=== PATIENT | male | born 1945 | race Caucasian/White ===

== ENCOUNTER → 2017-01-08 | Outpatient (CLI) | payer OTHER ==
--- NOTE | 2017-01-08 19:18 | DX ---
Lumbar Spine, 2 Views at 1437 hours History: Low back pain. 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 NO I/A. Findings: Five lumbar vertebral body segments. Bilateral transpedicular screws and fusion rods at the L3, L4, L5 and S1 levels. Interbody disk hardware at L3-L4, L4-L5 and L5-S1. Hardware appears intact . Moderate degenerative disk disease at L2-L3 with moderate disk space narrowing, endplate sclerotic ch anges, osteophytes, and degenerative grade 1 retrolisthesis 5 mm. Impression: 1. L3-L4 through L5-S1 diskectomies and posterior fusion hardware appearing intact with satisfactory alignment. 2. L2-L3 moderate degenerative disk disease and degenerative retrolisthesis. 3. No lumbar compression fractures.
== END ==
LOC: FIMAGING 14:24
PROVIDERS: ATTEND Physician Assistant
DX: M51.36 Other intervertebral disc degeneration, lumbar region (principal); M99.73 Connective tissue and disc stenosis of intervertebral foramina of lumbar region; Z98.1 Arthrodesis status

== ENCOUNTER → 2017-08-19 | Outpatient (CLI) | payer OTHER | LOC: GIMAGING 15:09 | PROVIDERS: ATTEND Family Medicine | DX: M50.321 Other cervical disc degeneration at C4-C5 level (principal); M50.322 Other cervical disc degeneration at C5-C6 level; M99.71 Connective tissue and disc stenosis of intervertebral foramina of cervical region | CPT/HCPCS: 72050-PO; G0103 ==

== ENCOUNTER → 2018-01-27 | Outpatient (CLI) | payer OTHER | LOC: BMCIMAGING 14:52 | PROVIDERS: ATTEND Family Medicine | DX: Z13.820 Encounter for screening for osteoporosis (principal); M85.89 Other specified disorders of bone density and structure, multiple sites ==

== ENCOUNTER 2018-11-28 10:01 | Emergency (ER) | payer OTHER ==
--- NOTE | 2018-11-28 10:47 | EDPHY ---
HPI/HX/ROS/PE/MDM Narrative: CHIEF COMPLAINT: Left neck swelling, dyspnea HPI: The patient is a 73 y/o male arriving with his complaining of acute onset mild shortness of breath and notable left-sided neck swelling noticed upon waking this morning. The swelling has diminished somewhat since waking per . He describes a mild dull ache in the area that changes to a pinching sensation when he lifts his left arm or twists his neck. His voice seems hoarse to his . He cannot identify obvious precipitating causes. He sat at his computer yesterday and felt normal. No recent trauma. He is typically very active and despite symptoms went to spin class this morning. He was able to work out for about 30 minutes before he had to stop due to shortness of breath. He denies fever, cough, rhinorrhea, chest pain, abdominal pain, nausea, vomiting , diarrhea. He has no known history of cancers, cardiac disease, or respiratory disease. REVIEW OF SYSTEMS: A comprehensive 10 system review of systems is otherwise negative aside from elements mentioned in the history of present illness. 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 PHYSICAL EXAM: General:Patient is alert, in no acute distress. ENT:Eyes are normal to inspection. ENT inspection normal. Neck: 10cm area of an easily mobile fluid collection along the left lateral neck and located superior to clavicle and posterior to SCM. Right neck is normal. Full range of motion. Respiratory:No respiratory distress. Breath sounds normal bilaterally. Cardiovascular: Regular rate and rhythm. Strong peripheral pulses. Normal cap refill. Abdomen:The abdomen is nontender to palpation. There are no peritoneal signs. Back: Normal to inspection. No tenderness to palpation. Skin: Normal color. No rash. Warm and dry. Extremities: Normal appearance. Full range of motion. Neuro: Oriented x3. Normal motor function. Normal sensory function. ED Course: This is a healthy 73 y/o male who presents with acute onset left lateral neck swelling, dyspnea, and hoarse voice. The 10cm area is mobile and seems to be fluid filled. Airway is patent and breath sounds are clear. He has no systemic infectious symptoms. Plan for IV, labs, CT soft tissue neck. Creatinine is elevated at 1.7, though this may be due to his recent spin class. Consulted with radiology and they are able to administer a lower dose of IV contrast so we can complete the study. Soft tissue neck CT: edema present in soft tissue, no hemorrhage, no mass, normal vasculature, no obvious source for fluid 1215: Reassessed patient and discussed findings. 1220: Consulted with ENT PA. They will consult with their physician and call me back. ENT recommends discharge and outpatient follow up at their office tomorrow morning. Reassessed patient and discussed recommendations. Offered admission, but he would prefer to return home and follow up with ENT tomorrow at 08:00am. Strict return precautions discussed. He is comfortable with this plan. MDM: This patient presents with acute large painless edema of left neck and supraclavicular space, currently of unknown etiology. CT shows no evidence of vascular abnormality, mass or infection. As there is no airway compromise and vitals are normal, ENT has recommended patient be discharged and follow-up with them in clinic. I offered observation stay in the hospital overnight but patient and would like to go home. The understand that the etiology of symptoms is currently unknown. - Data Points Imaging: Discussed imaging studies w/ tape sewing machine operator Radiologist, I viewed and interpreted images myself Laboratory Results: Laboratory Results 11/28/18 10:50 11/28/18 10:50 11/28/18 11/28/18 11/28/18 10:57 10:50 10:50 WBC 13.02 10^3/uL H 10^3/uL (3.80-9.50) RBC 5.51 10^6/uL 10^6/uL (4.40-6.38) Hgb 18.3 g/dL H g/dL (13.7-17.5) POC Hgb 18.0 gm/dL H gm/dL (13.7-17.5) Hct 52.0 % H % (40.0-51.0) POC Hct 53 % H % (40-51) MCV 94.4 fL fL (81.5-99.8) MCH 33.2 pg pg (27.9-34.1) MCHC 35.2 g/dL g/dL (32.4-36.7) RDW 12.8 % % (11.5-15.2) Plt Count 293 10^3/uL 10^3/uL (150-400) MPV 9.2 fL fL (8.7-11.7) Neut % (Auto) 68.3 % % (39.3-74.2) Lymph % (Auto) 20.2 % % (15.0-45.0) [place] % (Auto) 8.9 % % (4.5-13.0) Eos % (Auto) 0.4 % L % (0.6-7.6) Baso % (Auto) 0.9 % % (0.3-1.7) Nucleat RBC Rel Count 0.0 % % (0.0-0.2) Absolute Neuts (auto) 8.89 10^3/uL H 10^3/uL (1.70-6.50) Absolute Lymphs (auto) 2.63 10^3/uL 10^3/uL (1.00-3.00) Absolute Monos (auto) 1.16 10^3/uL H 10^3/uL (0.30-0.80) Absolute Eos (auto) 0.05 10^3/uL 10^3/uL (0.03-0.40) Absolute Basos (auto) 0.12 10^3/uL H 10^3/uL (0.02-0.10) Absolute Nucleated RBC 0.00 10^3/uL 10^3/uL (0-0.01) Immature Gran % 1.3 % H % (0.0-1.1) Immature Gran # 0.17 10^3/uL H 10^3/uL (0.00-0.10) POC Sodium 139 mEq/L mEq/L (135-145) Sodium 135 mEq/L mEq/L (135-145) POC Potassium 3.9 mEq/L mEq/L (3.3-5.0) Potassium 4.3 mEq/L mEq/L (3.5-5.2) POC Chloride 102 mEq/L mEq/L (97-110) Chloride 105 mEq/L mEq/L (97-110) Carbon Dioxide 23 mEq/l mEq/l (22-31) Anion Gap 7 mEq/L mEq/L (6-14) POC BUN 27 mg/dL H mg/dL (7-23) BUN 28 mg/dL H mg/dL (7-23) Creatinine 1.6 mg/dL H mg/dL (0.7-1.3) POC Creatinine 1.7 mg/dL H mg/dL (0.7-1.3) Estimated GFR 43 Glucose 110 mg/dL H mg/dL (70-100) POC Glucose 114 mg/dL H mg/dL (70-100) Calcium 8.9 mg/dL mg/dL (8.5-10.4) Medications Given: Discontinued Medications Sodium Chloride (Ns) 1,000 mls @ 0 mls/hr IV EDNOW ONE; Wide Open PRN Reason: Protocol Stop: 11/28/18 11:22 Last Admin: 11/28/18 11:47 Dose: 1,000 mls Point of Care Test Results: Chemistry 11/28/18 10:57 POC Sodium 139 mEq/L mEq/L (135-145) POC Potassium 3.9 mEq/L mEq/L (3.3-5.0) POC Chloride 102 mEq/L mEq/L (97-110) POC BUN 27 mg/dL H mg/dL (7-23) POC Creatinine 1.7 mg/dL H mg/dL (0.7-1.3) POC Glucose 114 mg/dL H mg/dL (70-100) ISTAT H&H 11/28/18 10:57 POC Hgb 18.0 gm/dL H gm/dL (13.7-17.5) POC Hct 53 % H % (40-51) General Time Seen by Provider: 11/28/18 10:35 Initial Vital Signs: Initial Vital Signs Temperature (C) 36.7 C 11/28/18 10:05 Heart Rate 84 11/28/18 10:05 Respiratory Rate 16 11/28/18 10:05 Blood Pressure 122/80 H 11/28/18 10:05 O2 Sat (%) 97 11/28/18 10:05 O2 Delivery Mode Room Air Allergies/Adverse Reactions: No Known Allergies Allergy (Verified 11/28/18 10:07) Home Medications: Medication Instructions Recorded Pantoprazole Sodium [Protonix] 40 mg PO 11/28/18 Departure - Departure Disposition: Home, Routine, Self-Care Clinical Impression: Edema Condition: Good Instructions: Edema (ED) Additional Instructions: Follow up with ENT tomorrow morning at 08:00am with Dr. Mccauley at [facility]. Return to the ED for difficulty breathing, severe pain, fever, or other worsening of condition. Referrals: Cr Mccauley MD [Medical Doctor] - As per Instructions Report Scribed for: Ronaldo Blakely Report Scribed by: Meghan Salazar Date of Report: 11/28/18 Time of Report: 10:47 Physician Review and Approval Statement: Portions of this note were transcribed by an ED scribe. I personally performed the history, physical exam, and medical decision making; and confirm the accuracy of the information in the transcribed note.
[2018-11-28] MEDS ORDERED: IOPAMIDOL (ISOVUE 370) 100 ML BTL IV ONE (11:01)
[2018-11-28 11:02] LABS: PLATELET COUNT 293 10^3/uL (150-400)
[2018-11-28] MEDS: NS 1,000 ML IV ONE ×2 (11:46→11:47)
[2018-11-28 13:21] VITALS: BP 119/79
== END 2018-11-28 13:21 | disposition home or self-care (01) ==
DX: R60.9 Edema, unspecified (principal); R06.02 Shortness of breath; E86.9 Volume depletion, unspecified
CPT/HCPCS: 70491; 96360; 99285; Q9967; 82435-PO; 82565-PO; 82947-PO; 84132-PO; 84295-PO; 84520-PO; 85014-PO

== ENCOUNTER 2018-11-29 08:18 | Observation (INO) | payer OTHER ==
--- NOTE | 2018-11-29 08:25 | EDPHY ---
HPI/HX/ROS/PE/MDM Narrative: CHIEF COMPLAINT: Swelling in neck and abdomen, shortness of breath. HPI: This patient is a 73 year old male with history of diverticulosis and hiatal hernia. He returns to the emergency department today after evaluation yesterday for left-sided neck swelling. This morning, the neck swelling has decreased but is now bilateral, and the patient has swelling in his abdomen and scrotal area as well. He endorses a sudden 10 pound weight gain since yesterday. He states he had some mild abdominal discomfort yesterday but attributed this to his history of diverticulosis. The patient additionally feels short of breath, as if he must breathe shallowly due to a sensation of compression or fullness. His lower abdomen feels full as well and is mildly painful to palpation. The patient has never had similar symptoms in the past. He denies fever, nausea, vomiting, or diarrhea. He was able to eat well last night. He is generally very active and healthy. He denies chest pain, headache, syncope, or other worsening of condition. REVIEW OF SYSTEMS: A comprehensive 10 system review of systems is otherwise negative aside from elements mentioned in the history of present illness and medical decision making. PMH: Diverticulitis. History of hiatal hernia. History of back surgeries. 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 PHYSICAL EXAM: General:Patient is alert, in no acute distress. ENT:Eyes are normal to inspection. ENT inspection normal. Neck: Mild diffuse edema bilaterally, significantly reduced on the left since yesterday. Full range of motion. Respiratory:No respiratory distress. Breath sounds normal bilaterally. Cardiovascular: Regular rate and rhythm. Strong peripheral pulses. Normal cap refill. Abdomen:The lower abdomen is mildly tender to palpation. There are no peritoneal signs. There are normal bowel sounds. Genitourinary: Inguinal region, penis, and scrotum are diffusely swollen. Back: Normal to inspection. No tenderness to palpation. Skin: Normal color. No rash. Warm and dry. Extremities: Normal appearance. Full range of motion. Neuro: Oriented x3. Normal motor function. Normal sensory function. ED Course: 73 y/o male returns to the emergency department for evaluation of neck swelling , shortness of breath, and now lower abdominal, inguinal, and scrotal swelling with associated 10 pound weight gain. Yesterday, the patient presented with acute onset left lateral neck swelling, dyspnea, and hoarse voice. He had a 10cm area of swelling over the left lateral neck which was mobile and seemed to be fluid filled. CT soft tissue neck yesterday showed edema present in soft tissue, no hemorrhage, no mass, normal vasculature, no obvious source for fluid. Today, the neck swelling is significantly reduced but has bilateral involvement. The patient's inguinal region, penis, and scrotum are diffusely swollen. He has no systemic infectious symptoms, vitals are within normal limits. Plan for CXR, EKG, labs including CBC, chemistries, liver, BNP, UA, coag panel, troponin, d-dimer. Plan for CT chest and abdomen/pelvis. EKG was ordered and interpreted by myself. Please see [employer] system for official reading. Chest x-ray shows bibasilar atelectasis, small bilateral pleural effusions. Reviewed laboratory studies. D-dimer elevated at 3.71 9:[address] Julian, radiologist. CT shows diffuse fluid, no observable etiology. No clots, no masses. Discussed imaging and laboratory results with patient and his . Plan for admission for further evaluation. They are comfortable with this plan. 10:12 Spoke with hospitalist service. Dr. Fermin accepts admission for anasarca. - Data Points Imaging Results: Imaging Impressions Chest X-Ray 11/29/18 08:39 Impression: Bibasilar pneumonia. Abdomen CT 11/29/18 08:57 Impression: 1. Increasing small bilateral pleural effusion and worsening body wall edema since one day prior. 2. No explanation for anasarca. No lymphadenopathy or mass. 3. Mild bibasilar compressive atelectasis. CT Abdomen and Pelvis Contrast Technique: The abdomen and pelvis were scanned with 5 mm thick helically acquired slices following uneventful intravenous administration of 99 mL of Isovue-370. Dose reduction techniques were utilized. Findings: Small free fluid is present in the paracolic gutters and low pelvis. No abscess, intraabdominal mass, or lymphadenopathy. Diffuse edema involves the subcutaneous and mesenteric fat. The borderline enlarged liver, measuring 19.5 cm in the midaxillary line homogeneously enhances. No liver mass or evidence of cirrhosis. The hepatic and portal venous systems are patent. The spleen is normal size. No focal lesion. The pancreas, adrenal glands, and kidneys are normal. No renal mass or renal vein thrombosis. Gallbladder is contracted and contains layering dependent material (sludge versus stones). No biliary dilation. Bowel pattern is within normal limits with the exception of extensive diverticulosis throughout the descending and sigmoid colon. The abdominal aorta is normal caliber with mild calcified plaque. No lytic or blastic bone lesions. Posterior fusion hardware extends from L3 to S1. Grade 1 retrolisthesis of L2 on L3 results in mild central canal narrowing at L2-L3. Impression: 1. Small ascites and diffuse mesenteric and subcutaneous edema consistent with anasarca. 2. No clear etiology for anasarca. No lymphadenopathy, mass, or venous occlusion. Patent renal veins. 3. Extensive diverticulosis of the descending and sigmoid colon. 4. Cholelithiasis versus gallbladder sludge. Findings discussed with Emergency Department physician, Ronaldo Blakely MD on 11/29/2018 at 10:[address] 11/29/18 08:57 Impression: 1. Increasing small bilateral pleural effusion and worsening body wall edema since one day prior. 2. No explanation for anasarca. No lymphadenopathy or mass. 3. Mild bibasilar compressive atelectasis. CT Abdomen and Pelvis Contrast Technique: The abdomen and pelvis were scanned with 5 mm thick helically acquired slices following uneventful intravenous administration of 99 mL of Isovue-370. Dose reduction techniques were utilized. Findings: Small free fluid is present in the paracolic gutters and low pelvis. No abscess, intraabdominal mass, or lymphadenopathy. Diffuse edema involves the subcutaneous and mesenteric fat. The borderline enlarged liver, measuring 19.5 cm in the midaxillary line homogeneously enhances. No liver mass or evidence of cirrhosis. The hepatic and portal venous systems are patent. The spleen is normal size. No focal lesion. The pancreas, adrenal glands, and kidneys are normal. No renal mass or renal vein thrombosis. Gallbladder is contracted and contains layering dependent material (sludge versus stones). No biliary dilation. Bowel pattern is within normal limits with the exception of extensive diverticulosis throughout the descending and sigmoid colon. The abdominal aorta is normal caliber with mild calcified plaque. No lytic or blastic bone lesions. Posterior fusion hardware extends from L3 to S1. Grade 1 retrolisthesis of L2 on L3 results in mild central canal narrowing at L2-L3. Impression: 1. Small ascites and diffuse mesenteric and subcutaneous edema consistent with anasarca. 2. No clear etiology for anasarca. No lymphadenopathy, mass, or venous occlusion. Patent renal veins. 3. Extensive diverticulosis of the descending and sigmoid colon. 4. Cholelithiasis versus gallbladder sludge. Findings discussed with Emergency Department physician, Ronaldo Blakely MD on 11/29/2018 at 10:02 a.m. Imaging: Discussed imaging studies w/ talent associate Radiologist, I viewed and interpreted images myself Laboratory Results: Laboratory Results 11/29/18 08:30 11/29/18 08:30 11/29/18 11/29/18 11/29/18 08:40 08:35 08:30 WBC RBC Hgb Hct MCV MCH MCHC RDW Plt Count MPV Neut % (Auto) Lymph % (Auto) [place] % (Auto) Eos % (Auto) Baso % (Auto) Nucleat RBC Rel Count Absolute Neuts (auto) Absolute Lymphs (auto) Absolute Monos (auto) Absolute Eos (auto) Absolute Basos (auto) Absolute Nucleated RBC Immature Gran % Immature Gran # PT INR APTT D-Dimer Sodium 134 mEq/L L mEq/L (135-145) Potassium 4.0 mEq/L mEq/L (3.5-5.2) Chloride 103 mEq/L mEq/L (97-110) Carbon Dioxide 25 mEq/l mEq/l (22-31) Anion Gap 6 mEq/L mEq/L (6-14) BUN 22 mg/dL mg/dL (7-23) Creatinine 1.2 mg/dL mg/dL (0.7-1.3) Estimated GFR 60 Glucose 91 mg/dL mg/dL (70-100) Calcium 8.5 mg/dL mg/dL (8.5-10.4) Total Bilirubin 1.0 mg/dL mg/dL (0.1-1.4) Conjugated Bilirubin 0.2 mg/dL mg/dL (0.0-0.5) Unconjugated Bilirubin 0.8 mg/dL mg/dL (0.0-1.1) AST 35 IU/L IU/L (17-59) ALT 31 IU/L IU/L (21-72) Alkaline Phosphatase 52 IU/L IU/L (38-126) POC Troponin I 0.02 ng/mL ng/mL (0.00-0.08) NT-Pro-B Natriuret Pep 126 pg/mL H pg/mL (0-125) Total Protein 6.2 g/dL L g/dL (6.3-8.2) Albumin 3.6 g/dL g/dL (3.5-5.0) Urine Color YELLOW Urine Appearance HAZY Urine pH 6.0 (5.0-7.5) Ur Specific [place] 1.016 (1.002-1.030) Urine Protein NEGATIVE (NEGATIVE) Urine Ketones NEGATIVE (NEGATIVE) Urine Blood 1+ H (NEGATIVE) Urine Nitrate NEGATIVE (NEGATIVE) Urine Bilirubin NEGATIVE (NEGATIVE) Urine Urobilinogen NEGATIVE EU EU (0.2-1.0) Ur Leukocyte Esterase NEGATIVE (NEGATIVE) Urine RBC 1-3 /hpf /hpf (0-3) Urine WBC 0-1 /hpf /hpf (0-3) Ur Epithelial Cells TRACE /lpf /lpf (NONE-1+) Urine Mucus TRACE /lpf /lpf (NONE-1+) Urine Glucose NEGATIVE (NEGATIVE) 11/29/18 11/29/18 08:30 08:30 WBC 9.90 10^3/uL H 10^3/uL (3.80-9.50) RBC 4.79 10^6/uL 10^6/uL (4.40-6.38) Hgb 15.7 g/dL g/dL (13.7-17.5) Hct 45.0 % % (40.0-51.0) MCV 93.9 fL fL (81.5-99.8) MCH 32.8 pg pg (27.9-34.1) MCHC 34.9 g/dL g/dL (32.4-36.7) RDW 12.8 % % (11.5-15.2) Plt Count 232 10^3/uL 10^3/uL (150-400) MPV 9.1 fL fL (8.7-11.7) Neut % (Auto) 60.7 % % (39.3-74.2) Lymph % (Auto) 28.0 % % (15.0-45.0) [place] % (Auto) 8.5 % % (4.5-13.0) Eos % (Auto) 0.7 % % (0.6-7.6) Baso % (Auto) 0.7 % % (0.3-1.7) Nucleat RBC Rel Count 0.0 % % (0.0-0.2) Absolute Neuts (auto) 6.01 10^3/uL 10^3/uL (1.70-6.50) Absolute Lymphs (auto) 2.77 10^3/uL 10^3/uL (1.00-3.00) Absolute Monos (auto) 0.84 10^3/uL H 10^3/uL (0.30-0.80) Absolute Eos (auto) 0.07 10^3/uL 10^3/uL (0.03-0.40) Absolute Basos (auto) 0.07 10^3/uL 10^3/uL (0.02-0.10) Absolute Nucleated RBC 0.00 10^3/uL 10^3/uL (0-0.01) Immature Gran % 1.4 % H % (0.0-1.1) Immature Gran # 0.14 10^3/uL H 10^3/uL (0.00-0.10) PT 13.0 SEC SEC (12.0-15.0) INR 0.96 (0.83-1.16) APTT 24.6 SEC SEC (23.0-38.0) D-Dimer 3.71 ug/mLFEU H ug/mLFEU (0.00-0.50) Sodium Potassium Chloride Carbon Dioxide Anion Gap BUN Creatinine Estimated GFR Glucose Calcium Total Bilirubin Conjugated Bilirubin Unconjugated Bilirubin AST ALT Alkaline Phosphatase POC Troponin I NT-Pro-B Natriuret Pep Total Protein Albumin Urine Color Urine Appearance Urine pH Ur Specific [place] Urine Protein Urine Ketones Urine Blood Urine Nitrate Urine Bilirubin Urine Urobilinogen Ur Leukocyte Esterase Urine RBC Urine WBC Ur Epithelial Cells Urine Mucus Urine Glucose Point of Care Test Results: Chemistry 11/29/18 08:35 POC Troponin I 0.02 ng/mL ng/mL (0.00-0.08) General Initial Vital Signs: Initial Vital Signs Temperature (C) 36.9 C 11/29/18 08:23 Heart Rate 78 11/29/18 08:23 Respiratory Rate 16 11/29/18 08:23 Blood Pressure 158/88 H 11/29/18 08:23 O2 Sat (%) 94 11/29/18 08:23 O2 Delivery Mode Room Air Allergies/Adverse Reactions: No Known Allergies Allergy (Verified 11/29/18 08:22) Home Medications: Medication Instructions Recorded Famotidine [Pepcid 20 MG (*)] 40 mg PO HS PRN 11/29/18 Multivitamins [Multivitamin (*)] 1 each PO DAILY 11/29/18 Pantoprazole Sodium [Protonix 40mg 40 mg PO BIDAC 11/29/18 (*)] Sildenafil Citrate [Viagra] 100 mg PO AD 11/29/18 Departure - Departure Disposition: [facility] Inpatient Acute Clinical Impression: Anasarca Condition: Fair Report Scribed for: Ronaldo Blakely Report Scribed by: Gogo Stafford Date of Report: 11/29/18 Time of Report: 08:34 Physician Review and Approval Statement: Portions of this note were transcribed by an ED scribe. I personally performed the history, physical exam, and medical decision making; and confirm the accuracy of the information in the transcribed note.
[2018-11-29 08:44] LABS: PLATELET COUNT 232 10^3/uL (150-400)
[2018-11-29 08:52] LABS: INR 0.96 (0.83-1.16)
[2018-11-29] MEDS ORDERED: IOPAMIDOL (ISOVUE 370) 100 ML BTL IV ONE (09:01)
[2018-11-29] MEDS ORDERED: ONDANSETRON 4 MG/2 ML VIAL IVP PRN (11:41)
[2018-11-29] MEDS ORDERED: ONDANSETRON DISINTEGRATING 4 MG TAB PO PRN (11:41)
[2018-11-29] MEDS ORDERED: oxyCODONE IR 5 MG TAB PO PRN (11:41)
[2018-11-29] MEDS ORDERED: ACETAMINOPHEN 325 MG TAB PO PRN (11:41)
[2018-11-29] MEDS ORDERED: FAMOTIDINE 20 MG TAB PO PRN (11:42)
--- NOTE | 2018-11-29 13:00 | ECHO ---
[email or web address] [address] Main: [phone] Fax: [email or web address] Echocardiogram Name: CHARISMA DAWSON MR#: [id number] Study Date: 11/29/2018 Study Time: 12:16 PM Date of : 1945 Age: 73 year(s) Height: 175.3 cm (69 in.) Weight: 78.02 kg (172 lb.) BSA: 1.94 m2 Gender: Male Examination: Echo Indication: New onset Anasarca, Eval LV Fx Image Quality: Contrast: Requested by: Alex Fermin BP: 127 mmHg/73 mmHg Heart Rate: Rhythm: Indication: New onset Anasarca, Eval LV Fx Procedure Staff [employer] Driver: Devin Rdz RDCS Reading Physician: Jorge Dodd MD Requesting Provider: Conclusions: Normal global systolic LV function. EF is 76 %. Mild aortic valve regurgitation is present. Trivial tricuspid valve regurgitation. The pulmonary artery pressure is normal. Measurements: Chambers Valvular Assessment AV/MV Valvular Assessment TV/PV Normal Normal Normal Name Value Range Name Value Range Name Value Range Ao Vero (MM): 3.2 cm (2.2 cm-3.7 AV Vmax: 1.78 m/s (1 m/s-1.7 TR Vmax: 2.44 mm/s ( - ) cm) m/s) TR PGmax: 24 mmHg ( - ) IVSd (2D): 1.2 cm (0.6 cm-1.1 AV maxP mmHg ( - ) syst. PAP: 29 mmHg ( - ) cm) LVOT Vmax: 0.90 m/s (0.7 m/s-1.1 PV Vmax: 0.98 m/s (0.6 m/s-0.9 LVDd (2D): 4.7 cm (4.2 cm-5.9 m/s) m/s) cm) AR (PHT): 1016 ms ( - ) PV PGmax: 4 mmHg ( - ) LVDs (2D): 2.6 cm (2.1 cm-4 MV E Vmax: 0.74 m/s ( - ) cm) MV A Vmax: 0.84 m/s ( - ) LVPWd (2D): 1.2 cm (0.6 cm-1 MV E/A: 0.88 ( - ) cm) LVEF (2D): 76 (>=54 %) Continued Measurements: Chambers Valvular Assessment AV/MV Valvular Assessment TV/PV Name Value Name Value Name Value LADs Lon.0 cm MV E' Septal: 0.05 m/s CVP (est.): 5 mmHg LA Area: 15.9 cm2 MV E/E' Septal: 15.20 LA Volume: 45 ml MV E/E' Lateral: 12.10 LA Volume Index: 23.2 ml/m2 AR Vmax: 2.71 cm/s Patient: CHARISMA DAWSON Study Date: 11/29/2018 Page 1 of 2 12:16 PM Findings: Left Ventricle: Normal size left ventricle. No LV hypertrophy. Normal global systolic LV function. EF is 76 %. No regional wall motion abnormality. Right Ventricle: Normal size right ventricle. Normal RV function. Left Atrium: The left atrium is normal in size. Right Atrium: The right atrium is normal in size. Mitral Valve: The mitral valve is normal in appearance and function. There is no mitral valve regurgitation. Aortic Valve: The aortic valve is tri-leaflet. Mild aortic valve regurgitation is present. Tricuspid Valve: The tricuspid valve appears normal. Trivial tricuspid valve regurgitation. The pulmonary artery pressure is normal. Pulmonic Valve: The pulmonic valve is normal in appearance and function. Aorta: The aorta is normal. Pericardium: No pericardial effusion. (No Signature Object) Patient: CHARISMA DAWSON Study Date: 11/29/2018 Page 2 of 2 12:16 PM [id number]
[2018-11-29] MEDS ORDERED: FUROSEMIDE 20 MG/2 ML VIAL IVP ONE ×2 (13:12→18:00)
--- NOTE | 2018-11-29 13:38 | PDGENHP ---
History and Physical - Chief Complaint swelling - History of Present Illness Generally healthy 73yo M here with swelling. First noticed left neck swelling 2 days ago. No trouble swallowing or breathing. Area was soft and mobile. Came to ED yesterday and had neck CT which did not show any cause to his symptoms. He returns today with significant swelling in his bilateral groin, scrotal area, and lower abdomen. He weighed 182 pounds on the scale this morning and is typically 172 so decided to return to the ED. He reports dyspnea with exertion. No chest pain, leg or arm swelling. No numbness/tingling or weakness in either arm. No facial swelling or erythema. He has been feeling well recently. Works out routinely. No recent medication changes or over the counter meds. Has been taking PPI for 4 years. In the ED, a CT with contrast of his abdomen and pelvis showed significant edema in his abdominal wall and scrotum and bilateral pleural effusions. There is no evidence of mass/obstruction or significant adenopathy that would lead to his symptoms. He is being admitted for further evaluation and management. History Information - Allergies/Home Medication List Allergies/Adverse Reactions: No Known Allergies Allergy (Verified 11/29/18 08:22) Home Medications: Famotidine [Pepcid 20 MG (*)] 40 mg PO HS PRN 11/29/18 [Last Taken Unknown] Multivitamins [Multivitamin (*)] 1 each PO DAILY 11/29/18 [Last Taken Unknown] Pantoprazole Sodium [Protonix 40mg (*)] 40 mg PO BIDAC 11/29/18 [Last Taken ] Sildenafil Citrate [Viagra] 100 mg PO AD 11/29/18 [Last Taken Unknown] I have personally reviewed and updated: family history, medical history, social history, surgical history - Past Medical History Additional medical history: gerd, keller's esophagitis - Surgical History Additional surgical history: spine surgery - Family History Positive for: non-pertinent - Social History Smoking Status: Never smoked Alcohol Use: None Drug Use: None Additional social history: Lives with , works in [place] Review of Systems Review of Systems: ROS: 10pt was reviewed & negative except for what was stated in HPI & below Physical Exam Physical Exam: Temp Pulse Resp BP Pulse Ox 36.5 C 71 16 127/73 H 91 L 11/29/18 11:16 11/29/18 11:16 11/29/18 11:16 11/29/18 11:16 11/29/18 11:16 Constitutional: no apparent distress, appears nourished, not in pain Eyes: PERRL, anicteric sclera, EOMI Ears, Nose, Mouth, Throat: moist mucous membranes, hearing normal, ears appear normal, no oral mucosal ulcers Cardiovascular: regular rate and rhythym, no murmur, rub, or gallop, edema ( significant lower abdominal wall, bilateral inguinal, and scrotal edema; no edema in arms or legs) Respiratory: no respiratory distress, reduced air movement (bilateral bases), No expiratory wheeze, No inspiratory crackles Gastrointestinal: normoactive bowel sounds, soft, non-tender abdomen, no palpable masses Genitourinary: no bladder fullness, no bladder tenderness Skin: warm, normal color, no rashes or abrasions, no fluctuance, no induration, No mottled Musculoskeletal: full muscle strength, no muscle tenderness, normal joint ROM, no joint effusions Neurologic: AAOx3 Psychiatric: interacting appropriately, not anxious, not encephalopathic, thought process linear Lab Data & Imaging Review 11/29/18 08:30 11/29/18 08:30 WBC 9.90 10^3/uL (3.80-9.50) H 11/29/18 08:30 RBC 4.79 10^6/uL (4.40-6.38) 11/29/18 08:30 Hgb 15.7 g/dL (13.7-17.5) 11/29/18 08:30 Hct 45.0 % (40.0-51.0) 11/29/18 08:30 MCV 93.9 fL (81.5-99.8) 11/29/18 08:30 MCH 32.8 pg (27.9-34.1) 11/29/18 08:30 MCHC 34.9 g/dL (32.4-36.7) 11/29/18 08:30 RDW 12.8 % (11.5-15.2) 11/29/18 08:30 Plt Count 232 10^3/uL (150-400) 11/29/18 08:30 MPV 9.1 fL (8.7-11.7) 11/29/18 08:30 Neut % (Auto) 60.7 % (39.3-74.2) 11/29/18 08:30 Lymph % (Auto) 28.0 % (15.0-45.0) 11/29/18 08:30 [place] % (Auto) 8.5 % (4.5-13.0) 11/29/18 08:30 Eos % (Auto) 0.7 % (0.6-7.6) 11/29/18 08:30 Baso % (Auto) 0.7 % (0.3-1.7) 11/29/18 08:30 Nucleat RBC Rel Count 0.0 % (0.0-0.2) 11/29/18 08:30 Absolute Neuts (auto) 6.01 10^3/uL (1.70-6.50) 11/29/18 08:30 Absolute Lymphs (auto) 2.77 10^3/uL (1.00-3.00) 11/29/18 08:30 Absolute Monos (auto) 0.84 10^3/uL (0.30-0.80) H 11/29/18 08:30 Absolute Eos (auto) 0.07 10^3/uL (0.03-0.40) 11/29/18 08:30 Absolute Basos (auto) 0.07 10^3/uL (0.02-0.10) 11/29/18 08:30 Absolute Nucleated RBC 0.00 10^3/uL (0-0.01) 11/29/18 08:30 Immature Gran % 1.4 % (0.0-1.1) H 11/29/18 08:30 Immature Gran # 0.14 10^3/uL (0.00-0.10) H 11/29/18 08:30 PT 13.0 SEC (12.0-15.0) 11/29/18 08:30 INR 0.96 (0.83-1.16) 11/29/18 08:30 APTT 24.6 SEC (23.0-38.0) 11/29/18 08:30 D-Dimer 3.71 ug/mLFEU (0.00-0.50) H 11/29/18 08:30 Sodium 134 mEq/L (135-145) L 11/29/18 08:30 Potassium 4.0 mEq/L (3.5-5.2) 11/29/18 08:30 Chloride 103 mEq/L (97-110) 11/29/18 08:30 Carbon Dioxide 25 mEq/l (22-31) 11/29/18 08:30 Anion Gap 6 mEq/L (6-14) 11/29/18 08:30 BUN 22 mg/dL (7-23) 11/29/18 08:30 Creatinine 1.2 mg/dL (0.7-1.3) 11/29/18 08:30 Estimated GFR 60 11/29/18 08:30 Glucose 91 mg/dL (70-100) 11/29/18 08:30 Calcium 8.5 mg/dL (8.5-10.4) 11/29/18 08:30 Total Bilirubin 1.0 mg/dL (0.1-1.4) 11/29/18 08:30 Conjugated Bilirubin 0.2 mg/dL (0.0-0.5) 11/29/18 08:30 Unconjugated Bilirubin 0.8 mg/dL (0.0-1.1) 11/29/18 08:30 AST 35 IU/L (17-59) 11/29/18 08:30 ALT 31 IU/L (21-72) 11/29/18 08:30 Alkaline Phosphatase 52 IU/L (38-126) 11/29/18 08:30 POC Troponin I 0.02 ng/mL (0.00-0.08) 11/29/18 08:35 NT-Pro-B Natriuret Pep 126 pg/mL (0-125) H 11/29/18 08:30 Total Protein 6.2 g/dL (6.3-8.2) L 11/29/18 08:30 Albumin 3.6 g/dL (3.5-5.0) 11/29/18 08:30 TSH 3.920 uIU/mL (0.465-4.680) 11/29/18 12:00 Urine Color YELLOW 11/29/18 08:40 Urine Appearance HAZY 11/29/18 08:40 Urine pH 6.0 (5.0-7.5) 11/29/18 08:40 Ur Specific [place] 1.016 (1.002-1.030) 11/29/18 08:40 Urine Protein NEGATIVE (NEGATIVE) 11/29/18 08:40 Urine Ketones NEGATIVE (NEGATIVE) 11/29/18 08:40 Urine Blood 1+ (NEGATIVE) H 11/29/18 08:40 Urine Nitrate NEGATIVE (NEGATIVE) 11/29/18 08:40 Urine Bilirubin NEGATIVE (NEGATIVE) 11/29/18 08:40 Urine Urobilinogen NEGATIVE EU (0.2-1.0) 11/29/18 08:40 Ur Leukocyte Esterase NEGATIVE (NEGATIVE) 11/29/18 08:40 Urine RBC 1-3 /hpf (0-3) 11/29/18 08:40 Urine WBC 0-1 /hpf (0-3) 11/29/18 08:40 Ur Epithelial Cells TRACE /lpf (NONE-1+) 11/29/18 08:40 Urine Mucus TRACE /lpf (NONE-1+) 11/29/18 08:40 Urine Glucose NEGATIVE (NEGATIVE) 11/29/18 08:40 Assessment & Plan Assessment: Generally healthy 73yo M here with acute swelling of his left neck, abdominal wall, and scrotum. Plan: 1. Edema: Unclear etiology. No CHF. No protein in urine. Liver function good. No obvious obstructing mass or adenopathy on CT. No venous blockage (pulmonary, hepatic, renal). CT neck does show some compression of his L innominate vein on yesterday's scan but review of today's CT chest show that this is widely patent and wouldn't cause abdominal/scrotal symptoms anyway. TSH normal. No obvious offending meds. Doubt allergic reaction. - Check urine protein, creatinine for completeness - Discussed with both radiology and IR, no obvious cause for swelling on imaging - Start IV lasix 20mg - Will discuss possibility of diagnostic thoracentesis with patient 2. H/o keller's esophagitis: Continue PPI and H2RA. VTE ppx: LMWH Code: full Diet: low salt Dispo: Admit under observation
--- NOTE | 2018-11-29 15:06 | CPEKG ---
Test Reason : OPEN Blood Pressure : / mmHG Vent. Rate : 068 BPM Atrial Rate : 068 BPM P-R Int : 129 ms QRS Dur : 094 ms QT Int : 436 ms P-R-T Axes : 023 016 -12 degrees QTc Int : 464 ms Sinus rhythm Borderline T abnormalities, inferior leads Confirmed by Ronaldo Blakely ([id number] on 11/29/2018 3:05:47 PM Referred By: Confirmed By:Ronaldo Blakely
[2018-11-29] MEDS: PANTOPRAZOLE SODIUM 40 MG TAB PO SCH (17:52)
[2018-11-30 05:43] LABS: PLATELET COUNT 183 10^3/uL (150-400)
[2018-11-30 07:24] VITALS: BP 121/72
[2018-11-30] MEDS: PANTOPRAZOLE SODIUM 40 MG TAB PO SCH (08:10)
[2018-11-30] MEDS ORDERED: ENOXAPARIN 40 MG/0.4 ML SYR SC SCH (09:00)
--- NOTE | 2018-11-30 09:51 | ASMTCMCOM ---
CM Note CM Note Notes: Pt is a 73 y/o man admitted for swelling. Pt will most likely d/c independent when medially stable. No therapies ordered at this time. CM available for changes. Plan: Independent Date Signed: 11/30/2018 09:51 AM Electronically Signed By:MARK Schuster
--- NOTE | 2018-11-30 11:20 | PDDCSUM ---
Discharge Summary Discharge Summary: Date of Admission: 11/29/2018 Date of Discharge: 11/30/2018 Studies: 1. TTE 2. CTA chest/abdomen Discharge Diagnoses: 1. Idiopathic edema 2. Bilateral pleural effusions 3. Acute kidney injury, improving 4. H/o keller's esophagus Brief Hospital Course: Generally healthy 73yo M here with acute swelling of his left neck, abdominal wall, bilateral inguinal region and scrotum. CT imaging showed edema of these structures in addition to bilateral pleural effusions. Thorough work up including TTE, urine studies, labs for liver synthetic function, CT chest and abdomen were all unrevealing for etiology. He had no venous blockage (pulmonary , hepatic, renal) on CTA. He had no masses or adenopathy. No obvious offending meds that would cause edema. Not consistent with allergic reaction. Nonetheless , he was diuresed with IV lasix with good result. Ultimately his edema was felt to be idiopathic and he was discharged with PO lasix and advised to follow up with his PCP. We did consider diagnostic thoracentesis however felt to be of low utility unless edema doesn't improve or recurs in the future. Medications: Please refer to EMR for complete list. I wrote a prescription for lasix 20mg PO BID #60, 0 refills. Follow Up Plan: 1. Monitor weights and edema with diuretic. Follow up with PCP. Repeat BMP in 1- 2 weeks. Physical Exam: Vitals reviewed, normotensive. Alert and oriented, rrr without m/ r/g, lungs diminished at bases but no crackles, abdomen with improved gut wall edema in lower abdomen, improved scrotal edema, no leg or arm edema, no rashes.
== END 2018-11-30 12:00 | disposition home or self-care (01) ==
LOC: F3E 11:14
PROVIDERS: ADMIT Internal Medicine; ATTEND Internal Medicine
DX: R60.1 Generalized edema (principal); J90 Pleural effusion, not elsewhere classified; N17.9 Acute kidney failure, unspecified; R63.5 Abnormal weight gain; K22.70 Barrett's esophagus without dysplasia; K57.30 Diverticulosis of large intestine without perforation or abscess without bleeding; K21.9 Gastro-esophageal reflux disease without esophagitis; K44.9 Diaphragmatic hernia without obstruction or gangrene; J98.11 Atelectasis; Z98.1 Arthrodesis status
CPT/HCPCS: 71046; 71260; 74177; 93005; 93306; 96375; 96376; 99285; G0378; J1940; Q9967; 84484-PO; J1650

== ENCOUNTER 2019-05-30 15:36 | Emergency (ER) | payer OTHER | END 2019-05-30 17:55 | disposition home or self-care (01) ==